=== PATIENT | female | born 1945 | race Caucasian/White ===

== ENCOUNTER 2021-02-16 00:58 | Emergency (ER) | payer OTHER, MEDICARE ==
[~2021-02-16] VITALS: Ht 157.5 cm; Wt 68.0 kg
[2021-02-16 01:06] VITALS: BP_SYST 156
[2021-02-16] MEDS ORDERED: ACETAMINOPHEN/CODEINE 300 MG-30 MG TABLET PO ONE (02:15)
[2021-02-16] MEDS ORDERED: ACET12.55 PO (04:26)
[2021-02-16] MEDS ORDERED: BACITRACIN 1 GM OINT TP ONE (04:45)
[2021-02-16 05:54] VITALS: BP_SYST 125
[2021-02-17] MEDS ORDERED: FAMO20TA8 PO (10:20)
[2021-02-17] MEDS ORDERED: DILT120C89 PO (10:20)
[2021-02-17] MEDS ORDERED: DIVA250T PO (10:20)
[2021-02-17] MEDS ORDERED: MOM PO (10:20)
[2021-02-17] MEDS ORDERED: RISP1TAB7 PO (10:20)
[2021-02-17] MEDS ORDERED: LORA-259 PO (10:20)
[2021-02-17] MEDS ORDERED: ANT30 PO (10:20)
[2021-02-17] MEDS ORDERED: LOSA25TA3 PO (10:20)
[2021-02-17] MEDS ORDERED: CLON0.5T4 PO (10:20)
[2021-02-17] MEDS ORDERED: LEVE500T9 PO (10:20)
[2021-02-17] MEDS ORDERED: CALMO120 TP (10:20)
[2021-02-17] MEDS ORDERED: SYN50 PO (10:20)
[2021-02-17] MEDS ORDERED: TRAZ-250 PO (10:20)
[2021-02-17] MEDS ORDERED: APIX5TAB4 PO (10:20)
== END 2021-02-16 05:54 | disposition home or self-care (01) ==
LOC: SED 00:58
DX: S90.31XA Contusion of right foot, initial encounter (principal); X58.XXXA Exposure to other specified factors, initial encounter; Y93.89 Activity, other specified; Y92.89 Other specified places as the place of occurrence of the external cause; Y99.8 Other external cause status
CPT/HCPCS: 99283